=== PATIENT | male | born 1950 | race Asian ===

== ENCOUNTER 2017-10-31 08:32 | Day surgery (SDC) | payer OTHER ==
[2017-10-31] MEDS ORDERED: MIDAZOLAM 1 MG/ML 2 ML INJ ×2 (10:24)
[2017-10-31] MEDS ORDERED: FENTAnyl 50 MCG/ML VIAL (10:24)
== END 2017-10-31 10:38 | disposition home or self-care (01) ==
LOC: GIL 08:32
DX: Z12.11 Encounter for screening for malignant neoplasm of colon (principal); K64.8 Other hemorrhoids; I10 Essential (primary) hypertension
CPT/HCPCS: 45378